=== PATIENT | female | born 1970 | race Caucasian/White ===

== ENCOUNTER → 2017-02-13 | Outpatient (CLI) | payer MEDICARE, OTHER ==
[~2017-02-13] MED LIST: CYCL10 PO; ESCI10; FENT75TP; HYDMOR4 PO; HYDPAM25; LANS30EC; LEVCAR25ER; NAPR550 PO; OXYACE5T PO
== END ==
LOC: LAB SHORT 19:11
DX: N12 Tubulo-interstitial nephritis, not specified as acute or chronic (principal)
CPT/HCPCS: 87077; 87086; 87186

== ENCOUNTER 2021-11-17 16:05 | Emergency (ER) | payer MEDICARE, OTHER ==
[~2021-11-17] VITALS: Ht 165.1 cm; Wt 59.0 kg
== END 2021-11-17 18:35 | disposition home or self-care (01) ==
LOC: ER 16:05
DX: S06.0XAA Concussion with loss of consciousness status unknown, initial encounter (principal); D64.9 Anemia, unspecified; J45.909 Unspecified asthma, uncomplicated; Z88.8 Allergy status to other drugs, medicaments and biological substances; Z79.899 Other long term (current) drug therapy; W19.XXXA Unspecified fall, initial encounter
CPT/HCPCS: 70360; 70450; 99284-25